=== PATIENT | female | born 1965 | race American Indian/Alaskan Native ===

== ENCOUNTER 2017-06-09 12:21 | Inpatient (IN) | payer MEDICAID, OTHER ==
[2017-06-09] MEDS ORDERED: Sodium Chloride 0.9% 1,000 ML IV ONE ×2 (12:59→15:00)
[2017-06-09] MEDS ORDERED: Albuterol-Ipratrop 3 mg / 0.5 (3 ml) UD IH STA (13:00)
--- NOTE | 2017-06-09 13:18 | C.PDOC ---
History Of Present Illness 52 yo female w/PMHx of IDDM , smoker come in for evaluation of chest tightness, SOB gradually developed for past week and associated with sore throat. Pt sts, " lost lots of weight". Pt appears depressed, refused to give more history on present illness. Family member at bedside, saying " she has been struggle lately ". Time Seen by Provider: 06/09/17 12:47 Chief Complaint (Nursing): Shortness Of Breath History Per: Patient, Family Past Medical History Reviewed: Historical Data, Nursing Documentation, Vital Signs Vital Signs: Last Vital Signs Temp 97.8 F 06/14/17 07:26 Pulse 102 H 06/14/17 15:35 Resp 18 06/14/17 07:26 BP 115/81 06/14/17 15:35 Pulse Ox 95 06/09/17 18:48 - Medical History PMH: Anxiety, Asthma, Back Problems, Bronchitis, Depression, Diabetes, Post Traumatic Stress Disorder Denies: HIV, HTN, Seizures, Sexually Transmitted Disease Surgical History: Appendectomy, Cholecystectomy Family History: States: Unknown Family Hx - Social History Hx Tobacco Use: Yes Hx Alcohol Use: No Hx Substance Use: No - Immunization History Hx Tetanus Toxoid Vaccination: No Hx Influenza Vaccination: No Hx Pneumococcal Vaccination: No Review Of Systems Except As Marked, All Systems Reviewed And Found Negative. Constitutional: Negative for: Fever, Chills, Malaise ENT: Positive for: Nose Discharge, Nose Congestion, Throat Pain, Throat Swelling. Negative for: Ear Discharge, Mouth Swelling Cardiovascular: Negative for: Edema, Light Headedness Respiratory: Positive for: Cough, Shortness of Breath. Negative for: Sputum, Wheezing Gastrointestinal: Negative for: Nausea, Vomiting, Abdominal Pain, Diarrhea Genitourinary: Negative for: Dysuria Skin: Negative for: Rash, Bruising Neurological: Negative for: Weakness, Numbness, Altered Mental Status, Headache Physical Exam - Physical Exam Appears: Well, Non-toxic, No Acute Distress Skin: Normal Color, Warm, Dry, No Rash, No Ecchymosis Head: Normacephalic Eye(s): bilateral: PERRL Ear(s): Bilateral: Normal Nose: No Flaring, No Discharge Oral Mucosa: Moist, No Drooling, No Trismus Throat: No Erythema, No Exudate, No Drooling Neck: Trachea Midline, No Midline Cervical Tenderness, No Paracervical Tenderness, No Step Off Deformity, Supple Cardiovascular: Rhythm Regular, No Friction Rub, No Murmur, No JVD Respiratory: No Decreased Breath Sounds, No Accessory Muscle Use, No Rales, No Stridor, No Wheezing Gastrointestinal/Abdominal: Soft, No Tenderness, No Distention, No Guarding, No Rebound Back: No CVA Tenderness Extremity: Normal ROM, No Pedal Edema, No Deformity, No Swelling Neurological/Psych: Oriented x3, Normal Speech, Normal Motor, Normal Sensation, Normal Reflexes ED Course And Treatment - Laboratory Results Result Diagrams: 06/12/17 08:20 06/12/17 08:20 Lab Interpretation: Abnormal ECG: Interpreted By Me, Viewed By Me Interpretation Of ECG: Sinus tachy @107/min, NAD, no acute T wave or ST-T changes. O2 Sat by Pulse Oximetry: 95 Pulse Ox Interpretation: Normal - Other Rad CXR X-Ray: Read By Radiologist Interpretation: pprover : CHARISSE SHAW MD. Approver2 : Report Date : 06/09/2017 13:49:29. My Comment : . HISTORY: SOB. COMPARISON: 2012. TECHNIQUE: Chest PA and lateral. FINDINGS: LUNGS: No active pulmonary disease. PLEURA: No significant pleural effusion identified. No pneumothorax apparent. CARDIOVASCULAR: Normal. OSSEOUS STRUCTURES: No significant abnormalities. VISUALIZED UPPER ABDOMEN: Normal. OTHER FINDINGS: None. IMPRESSION: No active disease. - CT Scan/US CTA PE protocol Other Rad Studies (CT/US): Radiology Report Reviewed CT/US Interpretation: Accession No. : [id number]. Patient Name / ID : ENGLISH GAMINO / [id number]. Exam Date : 06/09/2017 17:07:34 ( Approved ). Study Comment : Sex / Age : F / 52Y. Creator : Tati Bolton MD. Dictator : Real Estate Closer : Second Chef : Tati Bolton MD. Approver2 : Report Date : 06/09/2017 17:37:18. My Comment : . CTA chest PE protocol. Indication: Shortness of breath. Technique: Contiguous axial images were obtained through the chest with intravenous contrast enhancement. Sagittal and coronal reconstructions were generated and reviewed. This CT exam was performed using 1 or more of the falling dose reduction techniques: Automated exposure control, adjustment of the MAA and/or kV according to patient size, and /or use of iterative reconstruction technique. IV Contrast: 100 mL Visipaque. . Radiation dose (DLP): 482.01 MGy-cm. Comparison: Chest x-ray performed earlier the same day. Findings: Visualized portions of the inferior thyroid gland appear unremarkable. The mediastinal and hilar vascular structures appear within normal limits. The heart appears within normal limits of size. No large central or segmental pulmonary embolus evident. No focal consolidation. No pleural effusion. No pneumothorax. 2 mm nodular density along the right fissure (Series 4, image 65). Limited visualized portions of the upper abdomen demonstrates cholecystectomy clips. No acute osseous abnormality is detected. Impression: No large central or segmental pulmonary embolus evident. No focal consolidation. No pleural effusion. No pneumothorax. 2 mm nodular density along the right fissure. In the absence of risk factors for lung cancer, no specific imaging follow-up is required. If the patient is a smoker or has other risk factors, follow-up CT at 12 months is recommended to document stability. Cholecystectomy clips. Progress Note: Pt was OBS in ED for 5 hours and remained stable. AFebrile, hemodynamicaly stable. Non-toxic. PulseOx 99% RA. ENT: no acute findings. Neck: SUpple, (-) JVD, (-) carotid bruits. Lungs: CTA B/L, BS equal B/L. CVS: (+)S1S2, reg. Abd: benign. Neuorlogicaly intact. Diagnostics and imaging review, case discussed with ED attending, noted high BUN/Cr. Hydrstaion with IVF ordered. Repeat BMP- improved BUN/Cr after pt was hydrated with 2LIVF with NS. pt remained stable, case discussed with again and pt was medically cleared for psych eval. Pt remained not fully cooperative with treatment. Crisis was called for psych evaluation . Pt was evaluated in ED and admission criteria was met for admission to psych floor s/o w/Dx of psychiatric disorder. As per ED attending, pt is stable for psych admission. Disposition - Disposition Disposition: HOSPITALIZED Disposition Time: 18:44 Condition: STABLE - Clinical Impression Clinical Impression: Psychiatric disorder, Dyspnea, Bronchitis, Diabetes mellitus
[2017-06-09] MEDS ORDERED: Sodium Chloride 0.9% 1,000 ML ONE ×2 (13:20→17:32)
[2017-06-09 13:22] LABS: BASO # 0.1 K/uL (0.0-0.2); EOS # 0.1 K/uL (0.0-0.7); EOS % 1.2 % (0.0-4.0); LYMPH # 2.5 K/uL (1.0-4.3); LYMPH % 20.3 % (20.0-40.0); MEAN CORPUSCULAR HEMOGLOBIN 28.8 pg (27.0-31.0); MEAN CORPUSCULAR HGB CONC 33.3 g/dL (33.0-37.0); MEAN PLATELET VOLUME 8.5 fL (7.2-11.7); MONO # 0.8 K/uL (0.0-0.8); NRBC % 0.1 % (0.0-2.0); RED CELL DISTRIBUTION WIDTH 15.5 % (11.5-14.5); WHITE BLOOD COUNT 12.1 K/uL (4.8-10.8)
[2017-06-09 13:24] LABS: MEAN CELL VOLUME 86.6 fL (81.0-99.0)
[2017-06-09 13:30] LABS: CHLORIDE 101 mmol/L (98-107); INR 1.2
[2017-06-09 13:31] LABS: POTASSIUM 3.8 mmol/L (3.6-5.2); SODIUM 139 mmol/L (132-148)
[2017-06-09 13:33] LABS: ALB/GLOB RATIO 0.9 (1.0-2.1); AST/SGOT 33 U/L (14-36); BILIRUBIN,TOTAL 1.3 mg/dL (0.2-1.3); BLOOD UREA NITROGEN 36 mg/dL (7-17); CARBON DIOXIDE 20 mmol/L (22-30); GFR AFRICAN-AMERICAN > 60
[2017-06-09 13:34] LABS: ALKALINE PHOSPHATASE 94 U/L (38-126); ALT/SGPT 45 U/L (9-52); CALCIUM 10.6 mg/dl (8.6-10.4); GLUCOSE,RANDOM 191 mg/dL (65-105)
[2017-06-09] MEDS ORDERED: Albuterol-Ipratrop 3 mg / 0.5 (3 ml) UD ONE (13:36)
--- NOTE | 2017-06-09 13:51 | RAD ---
HISTORY: SOB COMPARISON: 01/26/2013 TECHNIQUE: Chest PA and lateral FINDINGS: LUNGS: No active pulmonary disease. PLEURA: No significant pleural effusion identified. No pneumothorax apparent. CARDIOVASCULAR: Normal. OSSEOUS STRUCTURES: No significant abnormalities. VISUALIZED UPPER ABDOMEN: Normal. OTHER FINDINGS: None. IMPRESSION: No active disease.
[2017-06-09 14:06] LABS: THYROID STIMULATING HORMONE 1.64 mIU/L (0.46-4.68)
[2017-06-09 14:35] LABS: RBC URINE 2 /hpf (0-3); URINE BILIRUBIN NEGATIVE (NEGATIVE); URINE BLOOD NEGATIVE (NEGATIVE); URINE COLOR Amber (YELLOW); URINE GLUCOSE (UA) NORMAL (Normal); URINE KETONE NEGATIVE (NEGATIVE); URINE LEUKOCYTE ESTERASE TRACE Leu/uL (Negative); URINE PROTEIN 2+ mg/dL (NEGATIVE); WBC URINE 2 /hpf (0-5)
[2017-06-09] MEDS ORDERED: Iodixanol 320 MG/ML 100 ML BOTTLE IV ONE (16:19)
--- NOTE | 2017-06-09 17:39 | CT ---
CTA chest PE protocol Indication: Shortness of breath Technique: Contiguous axial images were obtained through the chest with intravenous contrast enhancement. Sagittal and coronal reconstructions were generated and reviewed. This CT exam was performed using 1 or more of the falling dose reduction techniques: Automated exposure control, adjustment of the MAA and/or kV according to patient size, and/or use of iterative reconstruction technique. IV Contrast: 100 mL Visipaque Radiation dose (DLP): 482.01 MGy-cm. Comparison: Chest x-ray performed earlier the same day. Findings: Visualized portions of the inferior thyroid gland appear unremarkable. The mediastinal and hilar vascular structures appear within normal limits. The heart appears within normal limits of size. No large central or segmental pulmonary embolus evident. No focal consolidation. No pleural effusion. No pneumothorax. 2 mm nodular density along the right fissure (Series 4, image 65). Limited visualized portions of the upper abdomen demonstrates cholecystectomy clips. No acute osseous abnormality is detected. Impression: No large central or segmental pulmonary embolus evident. No focal consolidation. No pleural effusion. No pneumothorax. 2 mm nodular density along the right fissure. In the absence of risk factors for lung cancer, no specific imaging follow-up is required. If the patient is a smoker or has other risk factors, follow-up CT at 12 months is recommended to document stability. Cholecystectomy clips.
[2017-06-09 18:21] LABS: CHLORIDE 106 mmol/L (98-107); POTASSIUM 3.7 mmol/L (3.6-5.2); SODIUM 139 mmol/L (132-148)
[2017-06-09 18:24] LABS: BLOOD UREA NITROGEN 34 mg/dL (7-17); CARBON DIOXIDE 23 mmol/L (22-30); GFR AFRICAN-AMERICAN > 60
[2017-06-09 18:25] LABS: CALCIUM 9.1 mg/dl (8.6-10.4); GLUCOSE,RANDOM 153 mg/dL (65-105)
[2017-06-09] MEDS ORDERED: Albuterol 0.083% Inhal Sol (2.5 mg/3 mL) UD IH STA (18:44)
[2017-06-09 18:48] VITALS: O2SAT 95
[2017-06-09] MEDS ORDERED: Albuterol 0.083% Inhal Sol (2.5 mg/3 mL) UD ONE (18:48)
--- NOTE | 2017-06-09 19:50 | PCM.BM ---
<Chanelle Malone - Last Filed: 06/09/17 19:48> Treatment Plan Problems - Problems identified on initial assessmt Auditory Hallucinations Date Initiated: 06/09/17 Time Initiated: 19:48 Assessment reference: NA Status: Active Comment: Hx of opioid abuse - tox screen negative Treatment assets and liabiliti Patient Assests: self-reliant, negotiates basic needs Patient Liabilities: live alone, other (homeless) - Milieu Protocol Maintain good personal hygiene: daily Encourage regular showers, daily Remind patient to perform daily oral care Conduct patient checks and document Observation sheet: Q15 minutes Maintain personal safety: every shift Educate patient to report safety concerns to staff, every shift Monitor environment for contraband/sharps Medication safety: Monitor for expected outcome, potential side effects: every shift, Assess barriers to learning: every shift, Assess readiness for medication education: every shift <Jr Benton - Last Filed: 06/10/17 18:53> - Diagnosis (1) Schizoaffective disorder Status: Acute Interventions: 06/10/17 18:53 * Assess/adjust medications daily and /or as needed * Discuss risks, benefits, sided effects and alternatives of medications * See patient on an individual basis 7x/week to assess level of delusional thoughts/ideation * * Assess/adjust medications daily and /or as needed * See patient on an individual basis 7x/week to assess symptoms of depression * Monitor for side effects & effectiveness of medications * <Angelina Cuellar - Last Filed: 06/11/17 11:39> Family Contact Family involvement: Family/SO is involved Family contact: Patient declines to allow family contact at present Family contact name: Will Recinos- Family contacted how many times per week?: 1 - Goals for Treatment Patient goals for treatment: "I need help." Discharge/Continuing Care - Education Needs Education Needs: Patient Medication, Patient Coping Skills - Discharge Discharge Criteria: Tolerates medication w/o severe side effects, Reduction of target symptoms Discharge to:: Home, With Family - Treatment Team Participation Discussed with Family/SO: Yes Was Patient/Family/SO present at Treatment Team Meeting: Yes
[2017-06-09] MEDS ORDERED: Albuterol HFA 90 mcg/actuation (8 g) INH PRN (20:07)
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
--- NOTE | 2017-06-10 21:58 | CARD ---
APPROVED REPORT EKG Measurement Heart [id number] <Conclusion> Sinus tachycardia Possible Left atrial enlargement Borderline ECG
[2017-06-11] MEDS ORDERED: Promethazine/Cod 6.25mg-10mg/5ml Syr UD PO PRN (13:40)
--- NOTE | 2017-06-11 14:00 | PCM.PYCHPN ---
Psychiatric Progress Note - Psychiatric Progress Note Patient seen today, length of contact: 15 minutes Patient Chief Complaint: "I feel scared" Problems Identified/Issues Discussed: The patient is seen, chart reviewed, case discussed with staff. The patient is compliant with medications and reports no side effects. Patient is cooperative with the interview but is noted to have retarded psychomotor activity, is slow to follow requests, appears lethargic and internally preoccupied. She speaks slowly in a monotone voice and occasionally grunts in response to questions. Patient states that she feels "not so good" and slept "so-so" last night. She reports that she is feeling sad, hopeless and helpless. When questioned about her anxiety, she states "I just feel scared." She denies visual hallucinations but states that she continues to hear voices. She states the voices are people talking and coming for her, but the voices do not tell her to hurt herself. She states that she feels like other people are watching and following her, and that other people can hear her thoughts. She also reports racing thoughts. She denies suicidal or homicidal ideation. Medication Change: Yes (Abilify and Lexapro both increase to 10mg PO HS) Medical Record Reviewed: Yes Mental Status Examination - Cognitive Function Orientation: Person, Place, Situation, Time Attention: WNL Concentration: WNL Association: WNL Fund of Knowledge: WNL - Mood Mood: Depressed, Anxious - Affect Affect: Constricted, Depressed - Speech Speech: Soft - Formal Thought Process Formal Thought Process: Hallucinations, Paranoia, Loosening of associations ( mild) - Suicidal Ideation Suicidal Ideation: No - Homicidal Ideation Homicidal Ideation: No Goal/Treatment Plan - Goal/Treatment Plan Need for Continued Stay: Remain at risks for inpatient hospitalization, Discharge may exacerbated symptoms Progress Toward Problem(s) and Goals/Treatment Plan: Depression: CBT Continue medications Support and psychoeducation daily Attend group and activities daily After care planning by CADE Abilify 10mg PO HS Lexapro 10mg PO daily Post traumatic stress disorder CBT Continue medications Support and psychoeducation daily Attend group and activities daily After care planning by CADE Ativan 1mg PO Q6 PRN - Smoking Cessation Smoking Cessation Initiated: No
[2017-06-11] MEDS ORDERED: Promethazine DM 6.25 mg-15 mg/5 ml Syrup PO PRN (14:48)
--- NOTE | 2017-06-11 15:33 | VASCLAB ---
STUDY DESCRIPTION: HISTORY: pain in LE worse with walking PRIORS: None. TECHNIQUE: Pulse volume recording waveforms and segmental pressures of bilateral lower extremities at multiple levels were obtained. Ankle Brachial Indices (ABIs) were calculated. Report prepared by VANESSA Jackson, RVT RIGHT LOWER EXTREMITY: * Brachial artery: Pressure - 134 mmHg. * High thigh: Pressure - mmHg: Ratio - : PVR waveform - Pulsatile * Low thigh: Pressure - mmHg: Ratio - PVR waveform: Pulsatile * Calf: Pressure - 150 mmHg: Ratio - 1.12 PVR waveform: Pulsatile * Posterior tibial Artery: Pressure - 156 mmHg: Ratio - 1.16 PVR waveform: Pulsatile * Dorsalis pedis Artery: Pressure - 163 mmHg: Ratio - 1.22 PVR waveform: Pulsatile * Great toe: Pressure - mmHg: Ratio - PVR waveform: Ankle brachial index (TOMMY): 1.22 LEFT LOWER EXTREMITY: * Brachial artery: Pressure - 130 mmHg. * High thigh: Pressure - mmHg: Ratio - : PVR waveform - Pulsatile * Low thigh: Pressure - mmHg: Ratio - PVR waveform: Pulsatile * Calf: Pressure - 169 mmHg: Ratio - 1.26 PVR waveform: Pulsatile * Posterior tibial Artery: Pressure - 161 mmHg: Ratio - 1.20 PVR waveform: Pulsatile * Dorsalis pedis Artery: Pressure - 166 mmHg: Ratio - 1.24 PVR waveform: Pulsatile * Great toe: Pressure - mmHg: Ratio - PVR waveform: Ankle brachial index (TOMMY): 1.24 OTHER FINDINGS: Right: Left: IMPRESSION: Right: There was no evidence of hemodynamically significant arterial insufficiency in the right lower extremity. Left: There was no evidence of hemodynamically significant arterial insufficiency in the left lower extremity.
--- NOTE | 2017-06-11 15:33 | VASCLAB ---
PROCEDURE: Lower Extremity Venous Duplex Exam. HISTORY: Pain in LE, calf pain PRIORS: None. TECHNIQUE: Bilateral common femoral, femoral, popliteal and posterior tibial, peroneal and great saphenous veins were evaluated. Flow was assessed with color Doppler, compressibility, assessment of phasic flow and augmentation response. Report prepared by Melvin Adam, VANESSA, RVT FINDINGS: RIGHT: 1. Common Femoral Vein: 1.1. Compressibility - Fully compressible: Thrombus - None : Flow - Phasic: Augmentation -Normal: Reflux - None. 2. Femoral Vein: 2.1. Compressibility - Fully compressible: Thrombus - None : Flow - Phasic: Augmentation -Normal: Reflux - None. 3. Popliteal Vein: 3.1. Compressibility - Fully compressible: Thrombus - None : Flow - Phasic: Augmentation -Normal: Reflux - None. 4. Posterior Tibial Vein: 4.1. Compressibility - Fully compressible: Thrombus - None: Flow - Phasic: Augmentation -Normal: Reflux - None. 5. Peroneal Vein: 5.1. Compressibility - Fully compressible: Thrombus - None: Flow - Phasic: Augmentation -Normal: Reflux - None. 6. Great Saphenous Vein: 6.1. Compressibility - Fully compressible: Thrombus - None: Flow - Phasic: Augmentation - Normal: Reflux - None. LEFT: 1. Common Femoral Vein: 1.1. Compressibility - Fully compressible: Thrombus - None: Flow - Phasic: Augmentation -Normal: Reflux - None. 2. Femoral Vein: 2.1. Compressibility - Fully compressible: Thrombus - None: Flow - Phasic: Augmentation -Normal: Reflux - None. 3. Popliteal Vein: 3.1. Compressibility - Fully compressible: Thrombus - None : Flow - Phasic: Augmentation -Normal: Reflux - None. 4. Posterior Tibial Vein: 4.1. Compressibility - Fully compressible: Thrombus - None: Flow - Phasic: Augmentation -Normal: Reflux - None. 5. Peroneal Vein: 5.1. Compressibility - Fully compressible: Thrombus - None: Flow - Phasic: Augmentation -Normal: Reflux - None. 6. Great Saphenous Vein: 6.1. Compressibility - Fully compressible: Thrombus - None: Flow - Phasic: Augmentation - Normal: Reflux - None. OTHER FINDINGS: Right: None significant. Left: None significant. IMPRESSION: Right: No evidence of deep or superficial vein thrombosis of the right lower extremity. Normal valve function noted of the right side. Left: No evidence of deep or superficial vein thrombosis of the left lower extremity. Normal valve function noted of the left side.
--- NOTE | 2017-06-11 15:41 | RAD ---
PROCEDURE: CHEST RADIOGRAPH, 1 VIEW HISTORY: cough COMPARISON: No 06/09/2017 FINDINGS: LUNGS: The lungs are hyperinflated and there is peribronchial thickening with chronic changes in both lungs. No focal consolidation. PLEURA: No pneumothorax or pleural fluid seen. CARDIOVASCULAR: Normal. OSSEOUS STRUCTURES: No significant abnormalities. VISUALIZED UPPER ABDOMEN: Normal. OTHER FINDINGS: None. IMPRESSION: No active pulmonary disease. COPD.
--- NOTE | 2017-06-11 15:50 | CP.PCM.CON ---
<GeorgeRoberLuz Maria - Last Filed: 06/11/17 15:54> History of Present Illness - History of Present Illness History of Present Illness: Pt is a 52F w/PMHx of IDDM and chronic bronchitis who came to the hospital for evaluation of chest tightness, SOB that gradually developed for past week and associated with sore throat. Patient says she also hears voices and has thoughts of hurting herself. Pt appears depressed and was difficult to obtain history from. Patient admits to dry cough, left sided headache x2 weeks, and ringing in her ears. Pt also having b/l leg cramping at rest but worse when she is walking. Patient admits to feelings of numbness in her legs b/l as well. Pt denies current chest tightness and SOB, f/c/ap/n/v/d/c. PMH: DM, Depression, chronic bronchitis Med: Metformin PSH: Hemorrhoids, cholecystectomy Allergies: seasonal FHx: unknown Soc: Former smoker (1 PPD x40y), denies alcohol and elicit drug use Review of Systems - Review of Systems All systems: reviewed and no additional remarkable complaints except (as per HPI ) Past Patient History - Past Social History Smoking Status: Heavy Smoker > 10 Cigarettes Daily - CARDIAC Hx Hypertension: No - PULMONARY Hx Asthma: Yes Hx Bronchitis: Yes - NEUROLOGICAL Hx Seizures: No - ENDOCRINE/METABOLIC Hx Endocrine Disorders: Yes Hx Diabetes Mellitus Type 2: Yes - HEMATOLOGICAL/ONCOLOGICAL Hx Human Immunodeficiency Virus (HIV): No - MUSCULOSKELETAL/RHEUMATOLOGICAL Hx Musculoskeletal Disorders: Yes - GENITOURINARY/GYNECOLOGICAL Hx Sexually Transmitted Disorders: No - PSYCHIATRIC Hx Substance Use: Yes - SURGICAL HISTORY Hx Appendectomy: Yes Hx Cholecystectomy: Yes - ANESTHESIA Hx Anesthesia: Yes Hx Anesthesia Reactions: No Meds Allergies/Adverse Reactions: Allergies Allergy/AdvReac Type Severity Reaction Status Date / Time No Known Allergies Allergy Verified 06/09/17 12:35 - Medications Medications: Current Medications Albuterol (Ventolin Hfa 90 Mcg/Actuation (8 G)) 1 puff INH RQ6 PRN PRN Reason: Shortness of Breath Albuterol/Ipratropium (Duoneb 3 Mg/0.5 Mg (3 Ml) Ud) 3 ml INH RQ6 [facility] Aripiprazole (Abilify) 10 mg PO HS [facility] Benztropine Mesylate (Cogentin) 1 mg PO Q6 PRN PRN Reason: eps Last Admin: 06/11/17 09:39 Dose: 1 mg Escitalopram Oxalate (Lexapro) 10 mg PO DAILY [facility] Guaifenesin (Mucinex La) 600 mg PO BID [facility] Haloperidol (Haldol) 5 mg PO Q6 PRN PRN Reason: Agitation Last Admin: 06/11/17 09:39 Dose: 5 mg Ibuprofen (Motrin Tab) 600 mg PO Q6 PRN PRN Reason: Pain, moderate (4-7) Insulin Human Regular (Novolin R) 0 unit SC ACHS [facility] PRN Reason: Protocol Lorazepam (Ativan) 1 mg PO Q6 PRN PRN Reason: Anxiety Last Admin: 06/10/17 17:25 Dose: 1 mg Metformin HCl (Glucophage) 500 mg PO BID [facility] Last Admin: 06/11/17 09:39 Dose: 500 mg Promethazine HCl/Dextromethorphan (Phenergan Dm Syrup) 5 ml PO Q6H PRN PRN Reason: Cough and congestion Trazodone HCl (Desyrel) 50 mg PO HS PRN PRN Reason: Insomnia Last Admin: 06/10/17 21:10 Dose: 50 mg Physical Exam - Constitutional Appears: Non-toxic, No Acute Distress - Head Exam Head Exam: NORMAL INSPECTION - Eye Exam Eye Exam: EOMI - ENT Exam ENT Exam: Mucous Membranes Moist - Respiratory Exam Respiratory Exam: Clear to Auscultation Bilateral, NORMAL BREATHING PATTERN. absent: Accessory Muscle Use, Wheezes, Respiratory Distress - Cardiovascular Exam Cardiovascular Exam: REGULAR RHYTHM, +S1, +S2 - GI/Abdominal Exam GI & Abdominal Exam: Normal Bowel Sounds, Soft. absent: Distended, Tenderness - Extremities Exam Extremities exam: Positive for: calf tenderness Additional comments: Sensation in tact b/l LEs. Positive Amanda sign on the right. Tenderness on dorsal aspect of feet b/l. - Neurological Exam Neurological exam: Alert - Psychiatric Exam Psychiatric exam: Depressed - Skin Skin Exam: Dry, Intact, Warm Results - Vital Signs Recent Vital Signs: Last Vital Signs Temp 98.4 F 06/11/17 07:39 Pulse 111 H 06/11/17 07:39 Resp 20 06/11/17 07:39 BP 139/95 H 06/11/17 07:39 Pulse Ox 95 06/09/17 18:48 - Labs Result Diagrams: 06/09/17 13:09 06/09/17 18:06 Assessment & Plan - Assessment and Plan (Free Text) Assessment: Diabetes * Metformin 500 mg BID * Low dose Reg insulin sliding scale * accuchecks ACHS * f/u HbA1c * f/u fasting lipid panel Cough with hx Chronic bronchitis * f/u cxr * if abnormal cxr consider CT * Duoneb q6 * Mucinex 600 BID * Promethazine w/codiene 5ml PO q6h * f/u urine legionella * f/u mycoplasma pneumonia * f/u strep pneumo Tachycardia * f/u repeat ECG * f/u echo LE pain * f/u arterial and venous duplex Schizoaffective Disorder * treat as per psych recs (Beck) <Saadia Caruso V - Last Filed: 06/12/17 08:10> Meds - Medications Medications: Current Medications Albuterol (Ventolin Hfa 90 Mcg/Actuation (8 G)) 1 puff INH RQ6 PRN PRN Reason: Shortness of Breath Albuterol/Ipratropium (Duoneb 3 Mg/0.5 Mg (3 Ml) Ud) 3 ml INH RQ6 [facility] Last Admin: 06/11/17 19:58 Dose: Not Given Aripiprazole (Abilify) 10 mg PO HS [facility] Last Admin: 06/11/17 21:02 Dose: 10 mg Benztropine Mesylate (Cogentin) 1 mg PO Q6 PRN PRN Reason: eps Last Admin: 06/11/17 09:39 Dose: 1 mg Escitalopram Oxalate (Lexapro) 10 mg PO DAILY [facility] Guaifenesin (Mucinex La) 600 mg PO BID [facility] Last Admin: 06/11/17 18:20 Dose: 600 mg Haloperidol (Haldol) 5 mg PO Q6 PRN PRN Reason: Agitation Last Admin: 06/11/17 21:02 Dose: 5 mg Ibuprofen (Motrin Tab) 600 mg PO Q6 PRN PRN Reason: Pain, moderate (4-7) Insulin Human Regular (Novolin R) 0 unit SC ACHS [facility] PRN Reason: Protocol Last Admin: 06/11/17 21:00 Dose: Not Given Lorazepam (Ativan) 1 mg PO Q6 PRN PRN Reason: Anxiety Last Admin: 06/10/17 17:25 Dose: 1 mg Metformin HCl (Glucophage) 500 mg PO BID [facility] Last Admin: 06/11/17 18:19 Dose: 500 mg Promethazine HCl/Dextromethorphan (Phenergan Dm Syrup) 5 ml PO Q6H PRN PRN Reason: Cough and congestion Last Admin: 06/11/17 19:55 Dose: 5 ml Trazodone HCl (Desyrel) 50 mg PO HS PRN PRN Reason: Insomnia Last Admin: 06/11/17 21:02 Dose: 50 mg Results - Vital Signs Recent Vital Signs: Last Vital Signs Temp 98.4 F 06/11/17 07:39 Pulse 91 H 06/11/17 16:06 Resp 20 06/11/17 07:39 BP 140/101 H 06/11/17 16:06 Pulse Ox 95 06/09/17 18:48 - Labs Result Diagrams: 06/09/17 13:09 06/09/17 18:06 Labs: Laboratory Results - last 24 hr 06/11/17 06/11/17 06/11/17 15:54 20:19 20:59 POC Glucose (mg/dL) 125 H 244 H Ur L.pneumophila Ag Negative 06/12/17 06/12/17 02:47 07:33 POC Glucose (mg/dL) 144 H 246 H Ur L.pneumophila Ag Attending/Attestation - Attestation I have personally seen and examined this patient.: Yes I have fully participated in the care of the patient.: Yes I have reviewed all pertinent clinical information: Yes Notes (Text): This is late computer entry fo 06/11/17. Patient seen, examined and case discussed with day-time resident. Medicine consult for diabetes, chronic bronchitis, and abnormal EKG. Patient does not remember the name of her primary care doctor/nor recall the name nor phone number of her pharmacy to confirm medical history and medications. Patient is hearing voices during the time of my examination. Patient reporting she takes Metformin at home and reports chronic cough for 2 weeks and former smoker. Assessment/Plan 1) Diabetes * Metformin 500 mg BID * Low dose Reg insulin sliding scale * accuchecks ACHS * f/u HbA1c * f/u fasting lipid panel AM 2) Cough with hx Chronic bronchitis * Patient is a former smoker. Patient reporting dry cough X 2 weeks. * Chest xray (06/09/17): no active disease * CT Chest (06/09/17): no large central or segmental pulmonary embolus evident. No focal consolidation. No pleural effusion. No pneumothorax. 2 mm nodular density along the right fissure * Chest xray (06/11/17): no active pulmonary disease. COPD. * Duoneb q6 PRn shortness of breathe * Mucinex 600 BID * Promethazine w/codiene 5ml PO q4H PRN cough * f/u urine legionella * f/u mycoplasma pneumonia * f/u strep pneumo 3) Tachycardia * Reviewed EKG on admission. Patient was sinus tachycardia; PE was ruled out, will repeat EKG * f/u echo 4) LE pain * f/u arterial and venous duplex r/o DVT * Venous duplex (06/11): negative for DVT/SVT * Arterial duplex (06/11): no evidence of hemodynamically significant arterial insufficiency in the right and left lower extremities * Possible due to neuropathy secondary to diabetes 5) Schizoaffective Disorder * Management per psych * Trazodone 50mg POq HS PRN * Ativan 1mg PO Q 6hour PRN * Motrin 600mg PO Q6 PRN * Haldol 5mg PO Q 6 PRN * Cogentin 1mg PO Q 6 PRN * Abilify 10mg PO q HS
[2017-06-11] MEDS: (Novolin R) Insulin Human Regular 100 units/ml vial SC SCH ×2 (15:56→21:00)
[2017-06-11] MEDS: guaiFENesin 600 mg ER Tab PO SCH (18:20)
[2017-06-11] MEDS: Albuterol-Ipratrop 3 mg / 0.5 (3 ml) UD INH SCH (19:58)
[2017-06-12] MEDS: Albuterol-Ipratrop 3 mg / 0.5 (3 ml) UD INH SCH ×4 (02:10→21:02)
[2017-06-12] MEDS ORDERED: Promethazine DM 6.25 mg-15 mg/5 ml Syrup PO PRN (08:05)
[2017-06-12] MEDS: (Novolin R) Insulin Human Regular 100 units/ml vial SC SCH ×4 (08:22→22:03)
[2017-06-12 08:38] LABS: BASO # 0.1 K/uL (0.0-0.2); BASO % 1.1 % (0.0-2.0); EOS # 0.2 K/uL (0.0-0.7); EOS % 2.2 % (0.0-4.0); HEMATOCRIT 41.1 % (34.0-47.0); LYMPH # 2.4 K/uL (1.0-4.3); LYMPH % 23.8 % (20.0-40.0); MEAN CELL VOLUME 87.4 fL (81.0-99.0); MEAN CORPUSCULAR HEMOGLOBIN 28.6 pg (27.0-31.0); MEAN CORPUSCULAR HGB CONC 32.7 g/dL (33.0-37.0); MEAN PLATELET VOLUME 8.6 fL (7.2-11.7); MONO # 0.6 K/uL (0.0-0.8); MONO % 5.9 % (0.0-10.0); RED CELL DISTRIBUTION WIDTH 15.2 % (11.5-14.5)
[2017-06-12 08:53] LABS: ALB/GLOB RATIO 0.9 (1.0-2.1); ALKALINE PHOSPHATASE 86 U/L (38-126); ALT/SGPT 54 U/L (9-52); AST/SGOT 40 U/L (14-36); BILIRUBIN,TOTAL 0.4 mg/dL (0.2-1.3); BLOOD UREA NITROGEN 13 mg/dL (7-17); CALCIUM 10.3 mg/dl (8.6-10.4); CARBON DIOXIDE 22 mmol/L (22-30); CHLORIDE 105 mmol/L (98-107); CHOLESTEROL 112 mg/dL (0-199); GFR AFRICAN-AMERICAN > 60; GLUCOSE,RANDOM 242 mg/dL (65-105); POTASSIUM 3.8 mmol/L (3.6-5.2); SODIUM 140 mmol/L (132-148); TOTAL PROTEIN 7.7 g/dL (6.3-8.3)
[2017-06-12] MEDS: guaiFENesin 600 mg ER Tab PO SCH ×2 (11:50→17:25)
--- NOTE | 2017-06-12 17:38 | CP.PCM.PN ---
<Luz Maria Aldana DO - Last Filed: 06/12/17 17:26> Subjective - Date & Time of Evaluation Date of Evaluation: 06/12/17 Time of Evaluation: 11:00 - Subjective Subjective: Medicine progress note for Dr. Caruso Patient seen and examined. Patient not complaining of cough. Patient states she uses an inhaler at home. Objective - Vital Signs/Intake and Output Vital Signs (last 24 hours): Temp Pulse Resp BP Pulse Ox 97.9 F 105 H 18 143/101 H 95 06/12/17 09:15 06/12/17 16:09 06/12/17 09:15 06/12/17 16:09 06/09/17 18:48 - Medications Medications: Current Medications Albuterol/Ipratropium (Duoneb 3 Mg/0.5 Mg (3 Ml) Ud) 3 ml INH RQ6 [facility] Last Admin: 06/12/17 14:00 Dose: 3 ml Aripiprazole (Abilify) 10 mg PO HS [facility] Last Admin: 06/11/17 21:02 Dose: 10 mg Benztropine Mesylate (Cogentin) 1 mg PO Q6 PRN PRN Reason: eps Last Admin: 06/11/17 09:39 Dose: 1 mg Escitalopram Oxalate (Lexapro) 10 mg PO DAILY [facility] Last Admin: 06/12/17 09:27 Dose: 10 mg Guaifenesin (Mucinex La) 600 mg PO BID [facility] Last Admin: 06/12/17 11:50 Dose: 600 mg Haloperidol (Haldol) 5 mg PO Q6 PRN PRN Reason: Agitation Last Admin: 06/11/17 21:02 Dose: 5 mg Ibuprofen (Motrin Tab) 600 mg PO Q6 PRN PRN Reason: Pain, moderate (4-7) Insulin Human Regular (Novolin R) 0 unit SC ACHS [facility] PRN Reason: Protocol Last Admin: 06/12/17 17:15 Dose: Not Given Lorazepam (Ativan) 1 mg PO Q6 PRN PRN Reason: Anxiety Last Admin: 06/10/17 17:25 Dose: 1 mg Metformin HCl (Glucophage) 1,000 mg PO BID [facility] Last Admin: 06/12/17 13:55 Dose: 1,000 mg Promethazine HCl/Dextromethorphan (Phenergan Dm Syrup) 5 ml PO Q4H PRN PRN Reason: Cough and congestion Trazodone HCl (Desyrel) 50 mg PO HS PRN PRN Reason: Insomnia Last Admin: 06/11/17 21:02 Dose: 50 mg - Labs Labs: 06/12/17 08:20 06/12/17 08:20 PT 14.3 SECONDS (9.7-12.2) H 06/09/17 13:09 INR 1.2 06/09/17 13:09 APTT 34 SECONDS (21-34) 06/09/17 13:09 - Constitutional Appears: Non-toxic, No Acute Distress - Head Exam Head Exam: ATRAUMATIC, NORMOCEPHALIC - Eye Exam Eye Exam: EOMI - ENT Exam ENT Exam: Mucous Membranes Moist - Respiratory Exam Respiratory Exam: Clear to Ausculation Bilateral, NORMAL BREATHING PATTERN - Cardiovascular Exam Cardiovascular Exam: +S1, +S2 - GI/Abdominal Exam GI & Abdominal Exam: Soft, Normal Bowel Sounds. absent: Tenderness - Extremities Exam Extremities Exam: Normal Inspection. absent: Pedal Edema - Neurological Exam Neurological Exam: Alert, Awake - Psychiatric Exam Psychiatric exam: Flat Affect - Skin Skin Exam: Dry, Warm Assessment and Plan - Assessment and Plan (Free Text) Assessment: Diabetes * increased metformin to 1000mg BID as sugars running high * Low dose Reg insulin sliding scale * accuchecks ACHS Cough with hx Chronic bronchitis * CXR: hyperinflated with peribronchial thickening, no consolidations * CT Chest (06/09/17): no large central or segmental pulmonary embolus evident. No focal consolidation. No pleural effusion. No pneumothorax. 2 mm nodular density along the right fissure * Duoneb q6 prn * Mucinex 600 BID * Promethazine DM 5ml PO q6h * urine legionella negative * f/u mycoplasma pneumonia * f/u strep pneumo Tachycardia * echo done, report pending LE pain * arterial and venous duplex negative Schizoaffective Disorder * treat as per psych recs (Beck) <Saadia Caruso V - Last Filed: 06/13/17 09:27> Objective - Vital Signs/Intake and Output Vital Signs (last 24 hours): Temp Pulse Resp BP Pulse Ox 98.7 F 61 22 136/68 95 06/13/17 07:43 06/13/17 07:43 06/13/17 07:43 06/13/17 07:43 06/09/17 18:48 - Medications Medications: Current Medications Albuterol/Ipratropium (Duoneb 3 Mg/0.5 Mg (3 Ml) Ud) 3 ml INH RQ6 [facility] Last Admin: 06/13/17 03:40 Dose: 3 ml Aripiprazole (Abilify) 10 mg PO HS [facility] Last Admin: 06/12/17 21:13 Dose: 10 mg Benztropine Mesylate (Cogentin) 1 mg PO Q6 PRN PRN Reason: eps Last Admin: 06/11/17 09:39 Dose: 1 mg Escitalopram Oxalate (Lexapro) 10 mg PO DAILY [facility] Last Admin: 06/12/17 09:27 Dose: 10 mg Guaifenesin (Mucinex La) 600 mg PO BID [facility] Last Admin: 06/12/17 17:25 Dose: 600 mg Haloperidol (Haldol) 5 mg PO Q6 PRN PRN Reason: Agitation Last Admin: 06/11/17 21:02 Dose: 5 mg Ibuprofen (Motrin Tab) 600 mg PO Q6 PRN PRN Reason: Pain, moderate (4-7) Insulin Human Regular (Novolin R) 0 unit SC ACHS [facility] PRN Reason: Protocol Lisinopril (Zestril) 2.5 mg PO DAILY [facility] Lorazepam (Ativan) 1 mg PO Q6 PRN PRN Reason: Anxiety Last Admin: 06/10/17 17:25 Dose: 1 mg Metformin HCl (Glucophage) 1,000 mg PO BID [facility] Last Admin: 06/12/17 17:25 Dose: 1,000 mg Promethazine HCl/Dextromethorphan (Phenergan Dm Syrup) 5 ml PO Q4H PRN PRN Reason: Cough and congestion Trazodone HCl (Desyrel) 50 mg PO HS PRN PRN Reason: Insomnia Last Admin: 06/11/17 21:02 Dose: 50 mg - Labs Labs: 06/12/17 08:20 06/12/17 08:20 PT 14.3 SECONDS (9.7-12.2) H 06/09/17 13:09 INR 1.2 06/09/17 13:09 APTT 34 SECONDS (21-34) 06/09/17 13:09 Attending/Attestation - Attestation I have personally seen and examined this patient.: Yes I have fully participated in the care of the patient.: Yes I have reviewed all pertinent clinical information, including history, physical exam and plan: Yes Notes (Text): This is late computer entry for 06/12/17. Patient seen, examined and case discussed with day-time resident. Medicine consult for diabetes, chronic bronchitis, and abnormal EKG. Patient reports she has not slept well for the past two nights. Patient not aware there is a PRN for insomnia by psychiatrist. Discussed with nursing staff , that patient will request. Patient's sugars uncontrolled. Increased to Metformin 1000mg PO 2x a day. Patient continues to hear voices; management per psych. Patient understands there is a PRN nebulizer if she needs. Follow-up EKG : normal sinus rhythm (in the paper chart) Assessment/Plan 1) Diabetes * increased Metformin 1000 mg BID * Low dose Reg insulin sliding scale * accuchecks ACHS * f/u HbA1c-->pending * Lipid panel: T, Chol: 112 LDL: 36 HDL: 37-->will need over the counter fish oil upon discharge to help increase HDL over time 2) Cough with hx Chronic bronchitis * Patient is a former smoker. Patient reporting dry cough X 2 weeks. * Chest xray (06/09/17): no active disease * CT Chest (06/09/17): no large central or segmental pulmonary embolus evident. No focal consolidation. No pleural effusion. No pneumothorax. 2 mm nodular density along the right fissure * Chest xray (06/11/17): no active pulmonary disease. COPD. * Duoneb q6 PRn shortness of breathe * Mucinex 600 BID * Promethazine w/codiene 5ml PO q4H PRN cough * urine legionella: negative * f/u mycoplasma pneumonia * f/u strep pneumo 3) Tachycardia * Reviewed EKG on admission. Patient was sinus tachycardia; PE was ruled out, will repeat EKG * EKG: NSR HR:90 (06/11/17) * Echocardiogram completed-->awaiting official read 4) LE pain * f/u arterial and venous duplex r/o DVT * Venous duplex (06/11): negative for DVT/SVT * Arterial duplex (06/11): no evidence of hemodynamically significant arterial insufficiency in the right and left lower extremities; AVR pressure normal * Possible due to neuropathy secondary to diabetes 5) Schizoaffective Disorder * Management per psych * Trazodone 50mg POq HS PRN * Ativan 1mg PO Q 6hour PRN * Motrin 600mg PO Q6 PRN * Haldol 5mg PO Q 6 PRN * Cogentin 1mg PO Q 6 PRN * Abilify 10mg PO q HS
--- NOTE | 2017-06-13 00:58 | CP.PCM.PN ---
<Shala Matos - Last Filed: 06/13/17 00:56> Subjective - Date & Time of Evaluation Date of Evaluation: 06/13/17 Time of Evaluation: 07:00 - Subjective Subjective: PGY1-Medicine Note- Dr. Caruso's Service Patient seen and examined at bedside and in no acute distress. Patient breathing well after having a breathing treatment. Patient having no cough. Patient denies sob, chest pain, abdominal pain, n/v, c/d. Objective - Vital Signs/Intake and Output Vital Signs (last 24 hours): Temp Pulse Resp BP Pulse Ox 97.9 F 105 H 18 143/101 H 95 06/12/17 09:15 06/12/17 16:09 06/12/17 09:15 06/12/17 16:09 06/09/17 18:48 - Medications Medications: Current Medications Albuterol/Ipratropium (Duoneb 3 Mg/0.5 Mg (3 Ml) Ud) 3 ml INH RQ6 [facility] Last Admin: 06/12/17 21:02 Dose: 3 ml Aripiprazole (Abilify) 10 mg PO HS [facility] Last Admin: 06/12/17 21:13 Dose: 10 mg Benztropine Mesylate (Cogentin) 1 mg PO Q6 PRN PRN Reason: eps Last Admin: 06/11/17 09:39 Dose: 1 mg Escitalopram Oxalate (Lexapro) 10 mg PO DAILY [facility] Last Admin: 06/12/17 09:27 Dose: 10 mg Guaifenesin (Mucinex La) 600 mg PO BID [facility] Last Admin: 06/12/17 17:25 Dose: 600 mg Haloperidol (Haldol) 5 mg PO Q6 PRN PRN Reason: Agitation Last Admin: 06/11/17 21:02 Dose: 5 mg Ibuprofen (Motrin Tab) 600 mg PO Q6 PRN PRN Reason: Pain, moderate (4-7) Insulin Human Regular (Novolin R) 0 unit SC ACHS [facility] PRN Reason: Protocol Last Admin: 06/12/17 22:03 Dose: Not Given Lorazepam (Ativan) 1 mg PO Q6 PRN PRN Reason: Anxiety Last Admin: 06/10/17 17:25 Dose: 1 mg Metformin HCl (Glucophage) 1,000 mg PO BID [facility] Last Admin: 06/12/17 17:25 Dose: 1,000 mg Promethazine HCl/Dextromethorphan (Phenergan Dm Syrup) 5 ml PO Q4H PRN PRN Reason: Cough and congestion Trazodone HCl (Desyrel) 50 mg PO HS PRN PRN Reason: Insomnia Last Admin: 06/11/17 21:02 Dose: 50 mg - Labs Labs: 06/12/17 08:20 06/12/17 08:20 PT 14.3 SECONDS (9.7-12.2) H 06/09/17 13:09 INR 1.2 06/09/17 13:09 APTT 34 SECONDS (21-34) 06/09/17 13:09 - Constitutional Appears: Well, Non-toxic, No Acute Distress - Head Exam Head Exam: ATRAUMATIC, NORMAL INSPECTION, NORMOCEPHALIC - Eye Exam Eye Exam: EOMI, Normal appearance - ENT Exam ENT Exam: Mucous Membranes Moist - Neck Exam Neck Exam: Full ROM - Respiratory Exam Respiratory Exam: Clear to Ausculation Bilateral, NORMAL BREATHING PATTERN. absent: Rales, Rhonchi, Wheezes, Respiratory Distress, Stridor - Cardiovascular Exam Cardiovascular Exam: REGULAR RHYTHM, RRR. absent: Gallop, Rubs, Murmur - GI/Abdominal Exam GI & Abdominal Exam: Soft, Normal Bowel Sounds - Extremities Exam Extremities Exam: Full ROM, Normal Inspection. absent: Pedal Edema - Neurological Exam Neurological Exam: Alert, Awake, Oriented x3 - Skin Skin Exam: Intact, Normal Color, Warm Assessment and Plan - Assessment and Plan (Free Text) Assessment: Diabetes * increased metformin to 1000mg BID as sugars running high * Low dose Reg insulin sliding scale * accuchecks ACHS Cough with hx Chronic bronchitis * CXR: hyperinflated with peribronchial thickening, no consolidations * CT Chest (06/09/17): no large central or segmental pulmonary embolus evident. No focal consolidation. No pleural effusion. No pneumothorax. 2 mm nodular density along the right fissure * Duoneb q6 prn * Mucinex 600 BID * Promethazine DM 5ml PO q6h * urine legionella negative * f/u mycoplasma pneumonia * f/u strep pneumo Tachycardia * echo done, report pending LE pain * arterial and venous duplex negative Schizoaffective Disorder * treat as per psych recs (Beck) <Borker,Saadia V - Last Filed: 06/13/17 09:41> Objective - Vital Signs/Intake and Output Vital Signs (last 24 hours): Temp Pulse Resp BP Pulse Ox 98.7 F 61 22 136/68 95 06/13/17 07:43 06/13/17 07:43 06/13/17 07:43 06/13/17 07:43 06/09/17 18:48 - Medications Medications: Current Medications Albuterol/Ipratropium (Duoneb 3 Mg/0.5 Mg (3 Ml) Ud) 3 ml INH RQ6 [facility] Last Admin: 06/13/17 03:40 Dose: 3 ml Aripiprazole (Abilify) 10 mg PO HS [facility] Last Admin: 06/12/17 21:13 Dose: 10 mg Benztropine Mesylate (Cogentin) 1 mg PO Q6 PRN PRN Reason: eps Last Admin: 06/11/17 09:39 Dose: 1 mg Escitalopram Oxalate (Lexapro) 10 mg PO DAILY [facility] Last Admin: 06/12/17 09:27 Dose: 10 mg Guaifenesin (Mucinex La) 600 mg PO BID [facility] Last Admin: 06/12/17 17:25 Dose: 600 mg Haloperidol (Haldol) 5 mg PO Q6 PRN PRN Reason: Agitation Last Admin: 06/11/17 21:02 Dose: 5 mg Ibuprofen (Motrin Tab) 600 mg PO Q6 PRN PRN Reason: Pain, moderate (4-7) Insulin Human Regular (Novolin R) 0 unit SC ACHS [facility] PRN Reason: Protocol Lisinopril (Zestril) 2.5 mg PO DAILY [facility] Lorazepam (Ativan) 1 mg PO Q6 PRN PRN Reason: Anxiety Last Admin: 06/10/17 17:25 Dose: 1 mg Metformin HCl (Glucophage) 1,000 mg PO BID [facility] Last Admin: 06/12/17 17:25 Dose: 1,000 mg Promethazine HCl/Dextromethorphan (Phenergan Dm Syrup) 5 ml PO Q4H PRN PRN Reason: Cough and congestion Trazodone HCl (Desyrel) 50 mg PO HS PRN PRN Reason: Insomnia Last Admin: 06/11/17 21:02 Dose: 50 mg - Labs Labs: 06/12/17 08:20 06/12/17 08:20 PT 14.3 SECONDS (9.7-12.2) H 06/09/17 13:09 INR 1.2 06/09/17 13:09 APTT 34 SECONDS (21-34) 06/09/17 13:09 Attending/Attestation - Attestation I have personally seen and examined this patient.: Yes I have fully participated in the care of the patient.: Yes I have reviewed all pertinent clinical information, including history, physical exam and plan: Yes Notes (Text): Patient seen, examined and case discussed with day-time resident. Medicine consult for diabetes, chronic bronchitis, and abnormal EKG. Patient reports she slept better last night. Patient affect is muted still. Patient still hears voices. Blood sugars are better controlled with Metformin adjustment. Blood pressure uncontrolled SBP: 130-40 and Diastolic: 100 yesterday; normalized this morning. Patient started on low dose avila-inhibitor for both blood pressure control and renoprotection from diabetes. Will hold statin given mildly elevated LFTs. Assessment/Plan 1) Diabetes * increased Metformin 1000 mg BID * Medium dose Reg insulin sliding scale * accuchecks ACHS * f/u HbA1c-->pending * Lipid panel: T, Chol: 112 LDL: 36 HDL: 37-->will need over the counter fish oil upon discharge to help increase HDL over time 2) Cough with hx Chronic bronchitis Hx of Asthma * Patient is a former smoker. Patient reporting dry cough X 2 weeks. * Chest xray (06/09/17): no active disease * CT Chest (06/09/17): no large central or segmental pulmonary embolus evident. No focal consolidation. No pleural effusion. No pneumothorax. 2 mm nodular density along the right fissure * Chest xray (06/11/17): no active pulmonary disease. COPD. * Duoneb q6 PRn shortness of breathe * Mucinex 600 BID * Promethazine w/codiene 5ml PO q4H PRN cough * urine legionella: negative * f/u mycoplasma pneumonia-->pending * f/u strep pneumo-->pending 3) Tachycardia * Reviewed EKG on admission. Patient was sinus tachycardia; PE was ruled out, will repeat EKG * EKG: NSR HR:90 (06/11/17) * Echocardiogram (06/11/17): left ventricle systolic function is normal; EF>70%, Right ventricular systolic function is normal. Mitral regurgitation is trace to mild. No tricuspid valve stenosis 4) LE pain * f/u arterial and venous duplex r/o DVT * Venous duplex (06/11): negative for DVT/SVT * Arterial duplex (06/11): no evidence of hemodynamically significant arterial insufficiency in the right and left lower extremities; AVR pressure normal * Possible due to neuropathy secondary to diabetes 5) Depression Post Traumatic Stress Disorder * Management per psych * Trazodone 50mg POq HS PRN * Ativan 1mg PO Q 6hour PRN * Motrin 600mg PO Q6 PRN * Haldol 5mg PO Q 6 PRN * Cogentin 1mg PO Q 6 PRN * Abilify 10mg PO q HS * Lexapro 10mg PO daily Disposition: Patient is medically stable from consult standpoint. Rx. Prescriptions for Metformin, Lisinopril, and Albuterol inhalter to be included in the chart. Will need diet and exercise modifications to address diabetes over time. Patient recommended for over the counter omega 3 FA to help increase HDL or salmon, fish oil, omega 3 rich nuts to help supplement her diet. Patient recommended to follow-up with outpatient PMD for diabetes management. Medicine will sign off. Please reconsult if needed. Primary management for patient's depression, PTSD, and auditory hallucinations per psych.
[2017-06-13] MEDS: Albuterol-Ipratrop 3 mg / 0.5 (3 ml) UD INH SCH ×3 (03:40→20:59)
[2017-06-13] MEDS: (Novolin R) Insulin Human Regular 100 units/ml vial SC SCH ×4 (08:09→21:29)
--- NOTE | 2017-06-13 09:10 | CARD ---
APPROVED REPORT EXAM: Two-dimensional and M-mode echocardiogram with Doppler and color Doppler. Other Information Quality : GoodRhythm : NSR INDICATION Abnormal EKG/Arrhythmia Dyspnea RISK FACTORS Diabetes Smoking M-Mode DIMENSIONS RVDd1.12 (2.1-3.2cm)Left Atrium (MM)3.58 (2.5-4.0cm) IVSd0.94 (0.7-1.1cm)Aortic Root3.61 (2.2-3.7cm) LVDd4.62 (4.0-5.6cm)Aortic Cusp Exc.1.66 (1.5-2.0cm) PWd0.85 (0.7-1.1cm)FS (%) 40 % LVDs2.76 (2.0-3.8cm)LVEF (%)71 (>50%) Mitral Valve MV E Sogqiica06.8cm/sMV A Wmyjbtzf35.6cm/sE/A ratio0.8 TDI E/Lateral E'0.0E/Medial E'0.0 Tricuspid Valve TR Peak Qaaxuwem071ep/sTR Peak Gr.[id number] LEFT VENTRICLE The left ventricle is normal size. There is normal left ventricular wall thickness. Left ventricle systolic function is normal. The Ejection Fraction is >70%. Transmitral Doppler flow pattern is Grade I-abnormal relaxation pattern. No left ventricle thrombus noted on this study. RIGHT VENTRICLE The right ventricle is normal size. The right ventricular systolic function is normal. ATRIA The left atrium size is normal. The right atrium size is normal. The interatrial septum is intact with no evidence for an atrial septal defect. AORTIC VALVE The aortic valve is normal in structure. No aortic regurgitation is present. There is no aortic valvular stenosis. MITRAL VALVE The mitral valve is normal in structure. There is no mitral valve stenosis. Mitral regurgitation is trace to mild. TRICUSPID VALVE The tricuspid valve is normal in structure. There is mild tricuspid regurgitation. There is no tricuspid valve stenosis. PULMONIC VALVE The pulmonary valve is normal in structure. GREAT VESSELS The aortic root is normal in size. <Conclusion> Left ventricle systolic function is normal. The Ejection Fraction is >70%. The right ventricular systolic function is normal. Mitral regurgitation is trace to mild. There is no tricuspid valve stenosis.
[2017-06-13] MEDS: guaiFENesin 600 mg ER Tab PO SCH ×2 (09:52→17:08)
[2017-06-14] MEDS: Albuterol-Ipratrop 3 mg / 0.5 (3 ml) UD INH SCH ×4 (01:10→16:04)
[2017-06-14] MEDS: (Novolin R) Insulin Human Regular 100 units/ml vial SC SCH ×4 (08:28→21:09)
[2017-06-14] MEDS: guaiFENesin 600 mg ER Tab PO SCH ×2 (09:24→17:37)
[2017-06-15] MEDS: Albuterol-Ipratrop 3 mg / 0.5 (3 ml) UD INH SCH ×4 (06:08→20:51)
--- NOTE | 2017-06-15 06:46 | PCM.PYCHPN ---
Psychiatric Progress Note - Psychiatric Progress Note Patient seen today, length of contact: 15 minutes Patient Chief Complaint: I CAN'T TALK Problems Identified/Issues Discussed: COPING SKILLS Medical Problems: NOTHING ACUTE TODAY Diagnostic Results: ECHOCARDIOGRAM NORMAL Medication Change: No Medical Record Reviewed: Yes Mental Status Examination - Cognitive Function Orientation: Person, Place, Situation, Time Attention: WNL Concentration: WNL Fund of Knowledge: WNL - Mood Mood: Depressed, Anxious - Affect Affect: Constricted, Depressed - Formal Thought Process Formal Thought Process: Hallucinations, Paranoia, Loosening of associations ( mild) - Suicidal Ideation Suicidal Ideation: No - Homicidal Ideation Homicidal Ideation: No Goal/Treatment Plan - Goal/Treatment Plan Need for Continued Stay: Remain at risks for inpatient hospitalization, Discharge may exacerbated symptoms Progress Toward Problem(s) and Goals/Treatment Plan: SAD= DEPRESSED TYPE AGUILA [facility]NA[facility] CBT [place] SUPPORTIVE PSYCHO THERAPY Estimated Date of D/C: 06/17/17 - Smoking Cessation Smoking Cessation Initiated: No
--- NOTE | 2017-06-15 07:06 | PCM.PYCHPN ---
Psychiatric Progress Note - Psychiatric Progress Note Patient seen today, length of contact: 15 minutes Patient Chief Complaint: IMY LEGS HURT. I STILL CAN'T TALK Problems Identified/Issues Discussed: COPING SKILLS MED ADHERENCE Medical Problems: NOTHING ACUTE Diagnostic Results: REVIWED Medication Change: No Medical Record Reviewed: Yes Mental Status Examination - Cognitive Function Orientation: Person, Place, Time Memory: Impaired Attention: WNL Fund of Knowledge: WNL - Mood Mood: Depressed, Anxious - Affect Affect: Constricted, Depressed - Speech Speech: Soft - Formal Thought Process Formal Thought Process: Hallucinations, Paranoia, Loosening of associations ( mild) - Suicidal Ideation Suicidal Ideation: No - Homicidal Ideation Homicidal Ideation: No Goal/Treatment Plan - Goal/Treatment Plan Need for Continued Stay: Remain at risks for inpatient hospitalization, Severe depression anxiety, Discharge may exacerbated symptoms Progress Toward Problem(s) and Goals/Treatment Plan: SCHIZOAFFECTIVE DISORDER DEPRESSED TYPE AGUILA THAO CBT GROUP [facility] RECREATIONAL THERAPY SUPPORTIVE PSYCHOTHERAPY Estimated Date of D/C: 06/17/17 - Smoking Cessation Smoking Cessation Initiated: No
--- NOTE | 2017-06-15 07:10 | PCM.PYCHPN ---
Psychiatric Progress Note - Psychiatric Progress Note Patient seen today, length of contact: 15 minutes Patient Chief Complaint: I DON'T FEEL WELL. Problems Identified/Issues Discussed: DEPRESSIVE SYMPTOMS TIME IT TAKES FOR ANTIDEPRESSANT TO HAVE AN EFFECT Medical Problems: NOYHING ACUTE Diagnostic Results: REVIEWED Medical Record Reviewed: Yes Mental Status Examination - Cognitive Function Orientation: Person, Place, Situation Memory: Impaired Attention: WNL Concentration: Poor Association: WNL Fund of Knowledge: Poor - Mood Mood: Depressed - Affect Affect: Constricted, Depressed - Speech Speech: Soft - Formal Thought Process Formal Thought Process: Hallucinations, Paranoia, Loosening of associations ( mild) - Suicidal Ideation Suicidal Ideation: No - Homicidal Ideation Homicidal Ideation: No Goal/Treatment Plan - Goal/Treatment Plan Need for Continued Stay: Remain at risks for inpatient hospitalization, Severe depression anxiety, Severe functional impairment Progress Toward Problem(s) and Goals/Treatment Plan: SAD DEPRESSED TYPE XU SHEEHAN CBT [place] SUPPOPRTIVE PSYCHOTHERAPY Estimated Date of D/C: 06/17/17 - Smoking Cessation Smoking Cessation Initiated: No
[2017-06-15] MEDS: (Novolin R) Insulin Human Regular 100 units/ml vial SC SCH ×4 (08:45→21:20)
[2017-06-15] MEDS: guaiFENesin 600 mg ER Tab PO SCH ×2 (09:47→17:30)
--- NOTE | 2017-06-15 10:43 | PCM.PYCHPN ---
Psychiatric Progress Note - Psychiatric Progress Note Patient seen today, length of contact: 15 minutes Patient Chief Complaint: I'm real depressed Problems Identified/Issues Discussed: The patient was seen, the chart reviewed, and case was discussed with staff. The patient is compliant with medication and does not state clearly if she is experiencing any side effects. Patient is cooperative during the interview but is slow to respond, grunts or mumbles in response to some questions, and appears internally preoccupied. Patient states that she is "real depressed." She states that the voices she hears "come and go." When asked if she feels like she is being watched or followed, patient mumbles in response. Patient needs more time to stabilize. After care discussed, support and psychoeducation given. Medication Change: No Medical Record Reviewed: Yes Mental Status Examination - Cognitive Function Orientation: Person, Place, Situation Memory: Impaired Attention: WNL Concentration: Poor Association: WNL Fund of Knowledge: Poor - Mood Mood: Depressed - Affect Affect: Constricted, Depressed - Speech Speech: Soft - Formal Thought Process Formal Thought Process: Hallucinations, Delusions, Paranoia, Loosening of associations (mild) - Suicidal Ideation Suicidal Ideation: No - Homicidal Ideation Homicidal Ideation: No Goal/Treatment Plan - Goal/Treatment Plan Need for Continued Stay: Remain at risks for inpatient hospitalization, Severe depression anxiety, Severe functional impairment Progress Toward Problem(s) and Goals/Treatment Plan: Schizoaffective disorder depressed type CBT Continue medications Support and psychoeducation daily Attend groups and activities daily After care planning by CADE Abilify 10mg PO HS Lexapro 10mg PO daily Post traumatic stress disorder CBT Continue medications Support and psychoeducation daily Attend group and activities daily After care planning by CADE Ativan 1mg PO Q6 PRN Estimated Date of D/C: 06/17/17 - Smoking Cessation Smoking Cessation Initiated: No
[2017-06-16] MEDS: Albuterol-Ipratrop 3 mg / 0.5 (3 ml) UD INH SCH ×3 (01:19→13:45)
[2017-06-16] MEDS: (Novolin R) Insulin Human Regular 100 units/ml vial SC SCH ×4 (08:17→21:56)
--- NOTE | 2017-06-16 09:58 | PCM.PYCHPN ---
Psychiatric Progress Note - Psychiatric Progress Note Patient seen today, length of contact: 15 minutes Patient Chief Complaint: "I'm feeling better" Problems Identified/Issues Discussed: The patient was seen, the chart reviewed, and case was discussed with staff. The patient is compliant with medications and reports no side effects. Patient is cooperative during the interview but remains somewhat slow to respond to questions. She states she is feeling better and wants to go home. She reports that the voices she's been hearing are getting better. Discussed plan to discharge home tomorrow. After care discussed, support and psychoeducation given. Medication Change: Yes (start prolixin) Medical Record Reviewed: Yes Mental Status Examination - Cognitive Function Orientation: Person, Place, Situation Memory: Impaired Attention: WNL Concentration: Poor Association: WNL Fund of Knowledge: Poor - Mood Mood: Depressed - Affect Affect: Constricted, Depressed - Speech Speech: Soft - Formal Thought Process Formal Thought Process: Hallucinations, Delusions, Paranoia, Loosening of associations (mild) - Suicidal Ideation Suicidal Ideation: No - Homicidal Ideation Homicidal Ideation: No Goal/Treatment Plan - Goal/Treatment Plan Need for Continued Stay: Remain at risks for inpatient hospitalization, Severe depression anxiety, Severe functional impairment Progress Toward Problem(s) and Goals/Treatment Plan: Schizoaffective disorder depressed type CBT Continue medications Support and psychoeducation daily Attend groups and activities daily After care planning by CADE Abilify 10mg PO HS Lexapro 10mg PO daily Prolixin 5 mg PO BID Post traumatic stress disorder CBT Continue medications Support and psychoeducation daily Attend group and activities daily After care planning by CADE Ativan 1mg PO Q6 PRN Estimated Date of D/C: 06/17/17 - Smoking Cessation Smoking Cessation Initiated: No
[2017-06-16] MEDS: guaiFENesin 600 mg ER Tab PO SCH ×2 (10:39→17:25)
[2017-06-17 07:25] VITALS: BP 118/76; PULSE 111; RESP 20; TEMP 98.6
[2017-06-17] MEDS: (Novolin R) Insulin Human Regular 100 units/ml vial SC SCH (08:20)
[2017-06-17] MEDS: guaiFENesin 600 mg ER Tab PO SCH (09:41)
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
--- NOTE | 2017-06-17 18:37 | CARD ---
APPROVED REPORT EKG Measurement Heart [id number] <Conclusion> Normal sinus rhythm Normal ECG
== END 2017-06-17 11:15 | disposition home or self-care (01) | DRG 430 ==
LOC: C.ER 12:21 → C.5E 18:48
PROVIDERS: ADMIT Psychiatry & Neurology Psychiatry; ATTEND Psychiatry & Neurology Psychiatry
PROC: GZHZZZZ Group Psychotherapy (ICD-10-PCS; principal; 2017-06-10)
PROC: GZ58ZZZ Individual Psychotherapy, Cognitive-Behavioral (ICD-10-PCS; 2017-06-10)
PROC: GZ56ZZZ Individual Psychotherapy, Supportive (ICD-10-PCS; 2017-06-10)
DX: F25.1 Schizoaffective disorder, depressive type (principal); E10.40 Type 1 diabetes mellitus with diabetic neuropathy, unspecified; F17.210 Nicotine dependence, cigarettes, uncomplicated; F43.10 Post-traumatic stress disorder, unspecified; Z90.49 Acquired absence of other specified parts of digestive tract; R00.0 Tachycardia, unspecified; G47.00 Insomnia, unspecified; Z59.0 Homelessness